=== PATIENT | female | born 1950 | race Caucasian/White ===

== ENCOUNTER 2020-06-08 11:51 | Emergency (ER) | payer MEDICARE, BC ==
[2020-06-08 12:11] VITALS: BP 132/62; PULSE 74
[2020-06-08] MEDS ORDERED: Sodium Chloride 0.9% 10 ML Syringe FLUSH PRN (12:21)
[2020-06-08] MEDS ORDERED: HYDROmorphone 1 MG/ML Syringe IVPUSH ONE (12:22)
[2020-06-08] MEDS ORDERED: Ketorolac 15 MG/ML SDV IVPUSH ONE (12:23)
[2020-06-08] MEDS ORDERED: Sodium Chloride 0.9% 1,000 ML IV SCH (12:30)
[2020-06-08] MEDS ORDERED: Iopamidol 755 Mg/ML 100 ML Bottle IVPUSH ONE (14:08)
[2020-06-08] MEDS ORDERED: Sodium Chloride 0.9% 10 ML Syringe FLUSH ONE (14:08)
[2020-06-08] MEDS ORDERED: Sodium Chloride 0.9% 100 ML IV SCH (14:15)
--- NOTE | 2020-06-08 14:56 | EDM.PDOC ---
ED HPI GENERAL MEDICAL PROBLEM - General Chief Complaint: Back Pain or Injury Stated Complaint: BACK PAIN Time Seen by Provider: 06/08/20 12:11 Source of Information: Reports: Patient History Limitations: Reports: No Limitations - History of Present Illness INITIAL COMMENTS - FREE TEXT/NARRATIVE: The patient presents with right upper back pain that radiates to her right chest. This started 3 days ago in her right upper back and the pain has increased and it is now in the right chest. She has no shortness of breath but when she takes a deep breath the pain is worse and when she moves. She did not hurt her back in any way such as fall, lift or twist. She has no fever, chills, cough, congestion, runny nose, abdominal pain, nausea or vomiting She has no numbness or weakness. Onset: Gradual Duration: Day(s): (3) Location: Reports: Chest, Back Quality: Reports: Sharp Severity: Severe Improves with: Reports: Immobilization Worsens with: Reports: Movement Context: Denies: Trauma Associated Symptoms: Reports: Chest Pain. Denies: Cough, Fever/Chills, Headaches, Nausea/Vomiting, Shortness of Breath Right Middle Back Pain Score (Numeric/FACES): 10 - Related Data Allergies Allergy/AdvReac Type Severity Reaction Status Date / Time metronidazole [From Flagyl] Allergy Swollen Verified 12/27/15 09:48 Tongue Penicillins Allergy Swelling Verified 11/16/15 07:55 Home Meds: Home Meds ALPRAZolam [Xanax] 1 mg PO TID PRN 03/11/14 [History] Aspirin [Halfprin] 81 mg PO DAILY 03/11/14 [History] Cyanocobalamin (Vitamin B12) [Vitamin B12] 1,000 mcg IJ ASDIRECTED 03/11/14 [History] Doxepin [SINEquan] 50 mg PO DAILY 03/11/14 [History] Estradiol. 2 mg PO DAILY 03/11/14 [History] Lisinopril 20 mg PO DAILY 03/11/14 [History] Lysine 500 mg PO BID 03/11/14 [History] Magnesium. 200 mg PO DAILY 03/11/14 [History] Multivitamin [Multivitamins] 1 tab PO DAILY 03/11/14 [History] Potassium Chloride [Klor-Con 10] 20 meq PO DAILY 03/11/14 [History] Rosuvastatin [Crestor] 20 mg PO DAILY 03/11/14 [History] Venlafaxine HCl [Venlafaxine ER] 150 mg PO DAILY 03/11/14 [History] amLODIPine [Norvasc] 5 mg PO DAILY 03/11/14 [History] hydroCHLOROthiazide [Hydrochlorothiazide] 25 mg PO DAILY 03/11/14 [History] Gabapentin [Neurontin] 1 tab PO Q8H #60 cap 11/16/15 [Rx] Meclizine HCl [Antivert] 25 mg PO Q8H #15 tablet 12/27/15 [Rx] Azithromycin [Zithromax] 250 mg PO DAILY #6 tab 06/08/20 [Rx] Hydrocodone/Acetaminophen [Hydrocodone-Acetamin 5-325 mg] 1 - 2 each PO Q6HR PRN #15 tablet 06/08/20 [Rx] Past Medical History HEENT History: Reports: Impaired Vision Other HEENT History: glasses Cardiovascular History: Reports: High Cholesterol, Hypertension Respiratory History: Reports: Sleep Apnea Genitourinary History: Reports: Urinary Incontinence WIND[employer]ER History: Reports: Musculoskeletal History: Reports: Osteoarthritis, Other (See Below) Other Musculoskeletal History: bilateral knee. surgery on cervical and lumbar spine Psychiatric History: Reports: Anxiety, Depression Hematologic History: Reports: B12 Deficiency - Infectious Disease History Infectious Disease History: Reports: Chicken Pox, Meningitis - Past Surgical History HEENT Surgical History: Reports: Adenoidectomy, Tonsillectomy GI Surgical History: Reports: Appendectomy Female Surgical History: Reports: Hysterectomy Neurological Surgical History: Reports: C-Spine, Lumbar Spine Musculoskeletal Surgical History: Reports: Knee Replacement, Other (See Below) Other Musculoskeletal Surgeries/Procedures:: right hip pain Social & Family History - Family History Family Medical History: No Pertinent Family History - Tobacco Use Tobacco Use Status *Q: Current Every Day Tobacco User Years of Tobacco use: 20 Packs/Tins Daily: 0.5 - Caffeine Use Caffeine Use: Reports: Soda, Tea - Recreational Drug Use Recreational Drug Use: No - Living Situation & Occupation Living situation: Reports: , with Spouse Occupation: Employed ED ROS GENERAL - Review of Systems Review Of Systems: See Below Constitutional: Reports: No Symptoms HEENT: Reports: No Symptoms Respiratory: Reports: No Symptoms Cardiovascular: Reports: Chest Pain Endocrine: Reports: No Symptoms GI/Abdominal: Reports: No Symptoms : Reports: No Symptoms Musculoskeletal: Reports: Back Pain Skin: Reports: No Symptoms Neurological: Reports: No Symptoms ED EXAM, UPPER BACK/NECK PAIN - Physical Exam Exam: See Below Exam Limited By: No Limitations General Appearance: Alert, No Apparent Distress Ears Exam: Normal External Exam Nose Exam: Normal Inspection Head Exam: Atraumatic, Normocephalic Neck Exam: Non-Tender, Normal Alignment, Normal Inspection Cardiovascular/Respiratory: Regular Rate, Rhythm, No M/R/G, Normal Breath Sounds, No Respiratory Distress GI/Abdominal: Soft, Non-Tender, No Organomegaly, No Mass Back Exam: Other (Pain upon palpation to the right upper back radiating to her right chest.) Extremities: Normal Inspection Neurologic: No Motor/Sensory Deficits, Alert, Oriented x 3 #1 Interpretation EKG Date: 06/08/20 Time: 13:45 Rhythm: NSR Rate (Beats/Min): 65 [place]: Normal P-Wave: Present QRS: Normal ST-T: Normal QT: Normal EKG Interpretation Comments: Q waves in the inferior leads Course - Vital Signs Last Recorded V/S: Last Vital Signs Temp 97.6 F 06/08/20 12:10 Pulse 74 06/08/20 12:10 Resp 20 06/08/20 12:10 BP 132/62 06/08/20 12:10 Pulse Ox 95 06/08/20 12:10 - Orders/Labs/Meds Orders: Active Orders 24 hr Category Date Time Status Cardiac Monitoring [RC] . DIRECTED Care 06/08/20 12:21 Active EKG Documentation Completion [RC] STAT Care 06/08/20 12:22 Active Oxygen Therapy [RC] PRN Care 06/08/20 12:21 Active Peripheral IV Care [RC] . DIRECTED Care 06/08/20 12:22 Active Ang Chest [CT] Stat Exams 06/08/20 13:47 Taken Chest 1V Frontal [CR] Stat Exams 06/08/20 12:22 Taken Sodium Chloride 0.9% [Normal Saline] 1,000 ml Med 06/08/20 12:30 Active IV ASDIRECTED Sodium Chloride 0.9% [Normal Saline] 100 ml Med 06/08/20 14:15 Active IV ASDIRECTED Sodium Chloride 0.9% [Saline Flush] Med 06/08/20 12:21 Active 10 ml FLUSH ASDIRECTED PRN Peripheral IV Insertion Adult [OM.PC] Stat Oth 06/08/20 12:21 Ordered Medication Orders Sodium Chloride (Normal Saline) 1,000 mls @ 125 mls/hr IV ASDIRECTED ELIZABETH Last Admin: 06/08/20 12:52 Dose: 125 mls/hr Documented by: ROSANA Sodium Chloride (Normal Saline) 100 mls @ 60 mls/hr IV ASDIRECTED ELIZABETH Last Admin: 06/08/20 14:39 Dose: 60 mls/hr Documented by: MADDI Sodium Chloride (Saline Flush) 10 ml FLUSH ASDIRECTED PRN PRN Reason: Keep Vein Open Last Admin: 06/08/20 12:53 Dose: 10 ml Documented by: ROSANA Labs: Laboratory Tests 06/08/20 06/08/20 06/08/20 Range/Units 12:42 12:42 12:42 WBC 7.12 (3.98-10.04) K/mm3 RBC 4.45 (3.98-5.22) M/mm3 Hgb 13.8 (11.2-15.7) gm/dl Hct 41.7 (34.1-44.9) % MCV 93.7 (79.4-94.8) fl MCH 31.0 (25.6-32.2) pg MCHC 33.1 (32.2-35.5) g/dl RDW Std Deviation 46.6 H (36.4-46.3) fL Plt Count 127 L (182-369) K/mm3 MPV 11.2 (9.4-12.3) fl Neut % (Auto) 71.9 H (34.0-71.1) % Lymph % (Auto) 17.7 L (19.3-51.7) % Mower % (Auto) 8.0 (4.7-12.5) % Eos % (Auto) 2.1 (0.7-5.8) Baso % (Auto) 0.3 (0.1-1.2) % Neut # (Auto) 5.12 (1.56-6.13) K/mm3 Lymph # (Auto) 1.26 (1.18-3.74) K/mm3 Mower # (Auto) 0.57 H (0.24-0.36) K/mm3 Eos # (Auto) 0.15 (0.04-0.36) K/mm3 Baso # (Auto) 0.02 (0.01-0.08) K/mm3 D-Dimer, Quantitative 0.72 H (0.19-0.50) mg/L Sodium 143 (136-145) mEq/L Potassium 4.1 (3.5-5.1) mEq/L Chloride 105 (98-107) mEq/L Carbon Dioxide 31 (21-32) mEq/L Anion Gap 11.1 (5-15) BUN 12 (7-18) mg/dL Creatinine 1.1 H (0.55-1.02) mg/dL Est Cr Clr Drug Dosing 46.94 mL/min Estimated GFR (MDRD) 49 (>60) mL/min BUN/Creatinine Ratio 10.9 L (14-18) Glucose 94 (80-115) mg/dL Calcium 9.0 (8.5-10.1) mg/dL Total Bilirubin 0.4 (0.2-1.0) mg/dL AST 16 (15-37) U/L ALT 25 (14-59) U/L Alkaline Phosphatase 67 (46-116) U/L Troponin I < 0.017 (0.00-0.056) ng/mL C-Reactive Protein 2.2 H* (<1.0) mg/dL Total Protein 6.8 (6.4-8.2) g/dl Albumin 3.3 L (3.4-5.0) g/dl Globulin 3.5 gm/dL Albumin/Globulin Ratio 0.9 L (1-2) SARS-CoV-2 RNA (NED) (NEGATIVE) 06/08/20 Range/Units 13:55 WBC (3.98-10.04) K/mm3 RBC (3.98-5.22) M/mm3 Hgb (11.2-15.7) gm/dl Hct (34.1-44.9) % MCV (79.4-94.8) fl MCH (25.6-32.2) pg MCHC (32.2-35.5) g/dl RDW Std Deviation (36.4-46.3) fL Plt Count (182-369) K/mm3 MPV (9.4-12.3) fl Neut % (Auto) (34.0-71.1) % Lymph % (Auto) (19.3-51.7) % Mower % (Auto) (4.7-12.5) % Eos % (Auto) (0.7-5.8) Baso % (Auto) (0.1-1.2) % Neut # (Auto) (1.56-6.13) K/mm3 Lymph # (Auto) (1.18-3.74) K/mm3 Mower # (Auto) (0.24-0.36) K/mm3 Eos # (Auto) (0.04-0.36) K/mm3 Baso # (Auto) (0.01-0.08) K/mm3 D-Dimer, Quantitative (0.19-0.50) mg/L Sodium (136-145) mEq/L Potassium (3.5-5.1) mEq/L Chloride (98-107) mEq/L Carbon Dioxide (21-32) mEq/L Anion Gap (5-15) BUN (7-18) mg/dL Creatinine (0.55-1.02) mg/dL Est Cr Clr Drug Dosing mL/min Estimated GFR (MDRD) (>60) mL/min BUN/Creatinine Ratio (14-18) Glucose (80-115) mg/dL Calcium (8.5-10.1) mg/dL Total Bilirubin (0.2-1.0) mg/dL AST (15-37) U/L ALT (14-59) U/L Alkaline Phosphatase (46-116) U/L Troponin I (0.00-0.056) ng/mL C-Reactive Protein (<1.0) mg/dL Total Protein (6.4-8.2) g/dl Albumin (3.4-5.0) g/dl Globulin gm/dL Albumin/Globulin Ratio (1-2) SARS-CoV-2 RNA (NED) Negative (NEGATIVE) Meds: Medications Generic Name Dose Route Start Last Admin Trade Name Freq PRN Reason Stop Dose Admin Sodium Chloride 1,000 mls @ 125 mls/hr 06/08/20 12:30 06/08/20 12:52 Normal Saline IV 125 mls/hr ASDIRECTED ELIZABETH Administration Sodium Chloride 100 mls @ 60 mls/hr 06/08/20 14:15 06/08/20 14:39 Normal Saline IV 60 mls/hr ASDIRECTED ELIZABETH Administration Sodium Chloride 10 ml 06/08/20 12:21 06/08/20 12:53 Saline Flush FLUSH 10 ml ASDIRECTED PRN Administration Keep Vein Open Discontinued Medications Generic Name Dose Route Start Last Admin Trade Name Freq PRN Reason Stop Dose Admin Hydromorphone HCl 1 mg 06/08/20 12:22 06/08/20 12:50 Dilaudid IVPUSH 06/08/20 12:23 1 mg ONETIME ONE Administration Iopamidol 100 ml 06/08/20 14:08 06/08/20 14:39 Isovue-370 (76%) IVPUSH 06/08/20 14:09 100 ml ONETIME ONE Administration Ketorolac Tromethamine 15 mg 06/08/20 12:23 06/08/20 12:48 Toradol IVPUSH 06/08/20 12:24 15 mg ONETIME ONE Administration Sodium Chloride 10 ml 06/08/20 14:08 06/08/20 14:39 Saline Flush FLUSH 06/08/20 14:09 10 ml ONETIME ONE Administration - Re-Assessments/Exams Free Text/Narrative Re-Assessment/Exam: 06/08/20 14:54 I ordered an IV saline lock, dilaudid 1mg IV, labs, EKG and CXR. Her EKG shows a NSR with no acute changes. Her CXR shows no acute findings. Her CBC looks good. Her D-dimer is elevated at 0.72. Her creatinine is elevated at 1.1. Her troponin is negative. Her CRP is elevated at 2.2. She is COVID [address] negative[address] a CT angio of her chest and it shows no pulmonary embolism present. Patchy airspace density in the periphery of the lower lobes and lingula. Atelectasis versus early pneumonia. Departure - Departure Time of Disposition: 15:00 Disposition: Home, Self-Care 01 Condition: Good Clinical Impression: Pneumonia Qualifiers: Pneumonia type: due to unspecified organism Laterality: bilateral Lung location: lower lobe of lung Qualified Code(s): J18.9 - Pneumonia, unspecified organism Right-sided thoracic back pain Qualifiers: Chronicity: acute Qualified Code(s): M54.6 - Pain in thoracic spine - Discharge Information *PRESCRIPTION DRUG MONITORING PROGRAM REVIEWED*: Not Applicable *COPY OF PRESCRIPTION DRUG MONITORING REPORT IN PATIENT LIZBETH: Not Applicable Prescriptions: Hydrocodone/Acetaminophen [Hydrocodone-Acetamin 5-325 mg] 1 - 2 each PO Q6HR PRN #15 tablet PRN Reason: Pain Azithromycin [Zithromax] 250 mg PO DAILY #6 tab Referrals: Pola Bullard MD [Primary Care Provider] - 1 Week Forms: ED Department Discharge Additional Instructions: Take the zithromax as prescribed. Take tylenol or motrin for he pain. If that does not help, try the hydrocodone. Please return if you are worse. Sepsis Event Note (ED) - Evaluation Sepsis Screening Result: No Definite Risk - Focused Exam Vital Signs: Vital Signs Temp Pulse Resp BP Pulse Ox 06/08/20 12:10 97.6 F 74 20 132/62 95 - My Orders Last 24 Hours: My Active Orders 06/08/20 12:21 Cardiac Monitoring [RC] . DIRECTED Oxygen Therapy [RC] PRN Sodium Chloride 0.9% [Saline Flush] 10 ml FLUSH ASDIRECTED PRN Peripheral IV Insertion Adult [OM.PC] Stat 06/08/20 12:22 EKG Documentation Completion [RC] STAT Peripheral IV Care [RC] . DIRECTED Chest 1V Frontal [CR] Stat 06/08/20 12:30 Sodium Chloride 0.9% [Normal Saline] 1,000 ml IV ASDIRECTED 06/08/20 13:47 Ang Chest [CT] Stat 06/08/20 14:15 Sodium Chloride 0.9% [Normal Saline] 100 ml IV ASDIRECTED - Assessment/Plan Last 24 Hours: My Active Orders 06/08/20 12:21 Cardiac Monitoring [RC] . DIRECTED Oxygen Therapy [RC] PRN Sodium Chloride 0.9% [Saline Flush] 10 ml FLUSH ASDIRECTED PRN Peripheral IV Insertion Adult [OM.PC] Stat 06/08/20 12:22 EKG Documentation Completion [RC] STAT Peripheral IV Care [RC] . DIRECTED Chest 1V Frontal [CR] Stat 06/08/20 12:30 Sodium Chloride 0.9% [Normal Saline] 1,000 ml IV ASDIRECTED 06/08/20 13:47 Ang Chest [CT] Stat 06/08/20 14:15 Sodium Chloride 0.9% [Normal Saline] 100 ml IV ASDIRECTED
--- NOTE | 2020-06-10 11:16 | CR ---
PROCEDURE INFORMATION: Exam: XR Chest, 1 View Exam date and time: 06/08/2020 12:14 PM Age: 70 years old Clinical indication: Chest pain; Type not specified TECHNIQUE: Imaging protocol: XR of the chest Views: 1 view. COMPARISON: CR Chest 1V Frontal 12/27/2015 10:20 AM FINDINGS: Lungs: Unremarkable. No consolidation. Pleural space: Unremarkable. No pleural effusion. No pneumothorax. Heart/Mediastinum: Unremarkable. No cardiomegaly. Bones/joints: Unremarkable. IMPRESSION: No acute findings. Thank you for allowing us to participate in the care of your patient. Dictated and Authenticated by: Quinten Menchaca MD 06/08/2020 1:44 PM Central Time ([place] & [place]) [facility]
--- NOTE | 2020-06-10 11:17 | CT ---
PROCEDURE INFORMATION: Exam: CT Angiography Chest With Contrast Exam date and time: 06/08/2020 2:11 PM Age: 70 years old Clinical indication: Abnormal findings; Abnormal diagnostic tests; Patient HX: RT chest pain, elevated d-dimer TECHNIQUE: Imaging protocol: Computed tomographic angiography of the chest with intravenous contrast. 3D rendering (Not supervised by radiologist): MIP and/or 3D reconstructed images were created by the technologist. Radiation optimization: All CT scans at this facility use at least one of these dose optimization techniques: automated exposure control; mA and/or kV adjustment per patient size (includes targeted exams where dose is matched to clinical indication); or iterative reconstruction. Contrast material: ISOVUE 370; Contrast volume: 80 ml; Contrast route: INTRAVENOUS (IV); COMPARISON: CT Ang Chest 02/16/2015 9:30 PM FINDINGS: Pulmonary arteries: Normal. No pulmonary emboli. Aorta: Unremarkable. No aortic aneurysm. No aortic dissection. Lungs: Patchy airspace density is present within the periphery of the lower lobes and lingula. The finding is nonspecific. This could be due to atelectasis with early pneumonia also possible. Consider atypical/viral etiologies. Pleural space: Unremarkable. No pneumothorax. No pleural effusion. Heart: Unremarkable. No cardiomegaly. No pericardial effusion. Lymph nodes: Unremarkable. No enlarged lymph nodes. Bones/joints: Unremarkable. No acute fracture. Soft tissues: Unremarkable. IMPRESSION: 1. No pulmonary embolism present. 2. Patchy airspace density in the periphery of the lower lobes and lingula. Atelectasis versus early pneumonia. Thank you for allowing us to participate in the care of your patient. Dictated and Authenticated by: Quinten Menchaca MD 06/08/2020 3:49 PM Central Time ([place] & [place]) [facility]
== END 2020-06-08 15:32 | disposition home or self-care (01) ==
LOC: JD.ED 11:51
DX: J18.9 Pneumonia, unspecified organism (principal); M54.6 Pain in thoracic spine; E78.00 Pure hypercholesterolemia, unspecified; I10 Essential (primary) hypertension; M19.90 Unspecified osteoarthritis, unspecified site; F41.9 Anxiety disorder, unspecified; F17.210 Nicotine dependence, cigarettes, uncomplicated; F32.9 Major depressive disorder, single episode, unspecified; Z20.828 Contact with and (suspected) exposure to other viral communicable diseases; Z88.1 Allergy status to other antibiotic agents; Z88.0 Allergy status to penicillin; Z79.82 Long term (current) use of aspirin; Z79.899 Other long term (current) drug therapy
CPT/HCPCS: 36415; 71045; 71275; 80053; 84484; 85025; 85379; 86140; 93005; 96374; 96375; 99285; J1170; J1885; J7030; Q9967; U0002

== ENCOUNTER 2021-09-26 10:19 | Emergency (ER) | payer MEDICARE, BC ==
[2021-09-26 10:46] VITALS: BP 156/73; PULSE 91
[2021-09-26] MEDS ORDERED: Acetaminophen/HYDROcodone 325-5 MG Tab PO ONE (13:21)
== END 2021-09-26 14:00 | disposition home or self-care (01) ==
LOC: JD.ED 10:19
DX: F32.A Depression, unspecified (principal); E78.00 Pure hypercholesterolemia, unspecified; I10 Essential (primary) hypertension; Z88.0 Allergy status to penicillin; Z88.1 Allergy status to other antibiotic agents; Z79.82 Long term (current) use of aspirin; Z79.899 Other long term (current) drug therapy
CPT/HCPCS: 36415; 70450; 80053; 81001; 84443; 85025; 86140; 99284; A9270

== ENCOUNTER 2022-03-23 12:11 | Emergency (ER) | payer MEDICARE, BC ==
[2022-03-23] MEDS ORDERED: Sodium Chloride 0.9% 10 ML Syringe FLUSH PRN (12:43)
[2022-03-23] MEDS ORDERED: Alum Hydrox/Mag Hydrox/Simeth 30 ML, Lidocaine 2% 15 ML PO ONE ×2 (13:33)
[2022-03-23] MEDS ORDERED: Ketorolac 30 MG/ML SDV IM ONE (13:33)
[2022-03-23 14:45] VITALS: BP 116/105; PULSE 111
== END 2022-03-23 14:45 | disposition home or self-care (01) ==
LOC: JD.ED 12:11
DX: K22.4 Dyskinesia of esophagus (principal); E78.00 Pure hypercholesterolemia, unspecified; I10 Essential (primary) hypertension; F17.210 Nicotine dependence, cigarettes, uncomplicated; Z88.8 Allergy status to other drugs, medicaments and biological substances; Z88.0 Allergy status to penicillin; Z79.899 Other long term (current) drug therapy; Z79.82 Long term (current) use of aspirin; Z90.49 Acquired absence of other specified parts of digestive tract; Z90.710 Acquired absence of both cervix and uterus
CPT/HCPCS: 36415; 71045; 80053; 83735; 83880; 84484; 85025; 85610; 85730; 93005; 96372; 99285; A9270; J1885; J3490; 93010; 99284

== ENCOUNTER 2022-08-06 10:34 | Emergency (ER) | payer MEDICARE, BC ==
[2022-08-06] MEDS ORDERED: Acetaminophen/HYDROcodone 325-5 MG Tab PO ONE (12:19)
[2022-08-06 13:01] LABS: ESTIMATED GFR 68 mL/min (>60)
[2022-08-06 13:33] VITALS: BP 139/64; PULSE 92
== END 2022-08-06 13:35 | disposition home or self-care (01) ==
LOC: JD.ED 10:34
DX: M79.601 Pain in right arm (principal); E78.00 Pure hypercholesterolemia, unspecified; I10 Essential (primary) hypertension; M19.90 Unspecified osteoarthritis, unspecified site; Z79.899 Other long term (current) drug therapy; Z79.82 Long term (current) use of aspirin; Z88.8 Allergy status to other drugs, medicaments and biological substances; Z88.0 Allergy status to penicillin
CPT/HCPCS: 36415; 73060; 73090; 80053; 81001; 85025; 99283; A9270

== ENCOUNTER 2022-08-16 17:52 | Emergency (ER) | payer MEDICARE, BC ==
[2022-08-16] MEDS ORDERED: Sodium Chloride 0.9% 10 ML Syringe FLUSH PRN (18:43)
[2022-08-16] MEDS ORDERED: Sodium Chloride 0.9% 1,000 ML IV SCH (19:00)
[2022-08-16] MEDS ORDERED: Acetaminophen 325 MG Tab PO ONE (19:48)
[2022-08-16 23:18] VITALS: BP 132/75; PULSE 78
== END 2022-08-16 23:16 | disposition home or self-care (01) ==
LOC: JD.ED 17:52
DX: S22.31XA Fracture of one rib, right side, initial encounter for closed fracture (principal); R51.9 Headache, unspecified; R41.0 Disorientation, unspecified; G89.18 Other acute postprocedural pain; M25.511 Pain in right shoulder; J98.11 Atelectasis; I10 Essential (primary) hypertension; F41.9 Anxiety disorder, unspecified; F32.A Depression, unspecified; E78.00 Pure hypercholesterolemia, unspecified; M19.90 Unspecified osteoarthritis, unspecified site; Z79.899 Other long term (current) drug therapy; Z79.82 Long term (current) use of aspirin; Z88.0 Allergy status to penicillin; Z88.8 Allergy status to other drugs, medicaments and biological substances; W01.198A Fall on same level from slipping, tripping and stumbling with subsequent striking against other object, initial encounter
CPT/HCPCS: 36415; 70450; 71101; 80053; 81001; 85025; 96360; 99285; J3490; J7030; 99284